=== PATIENT | female | born 1990 | race Two or more races ===

== ENCOUNTER 2023-09-28 14:35 | Inpatient (IN) | payer OTHER ==
[2023-09-28 15:03] VITALS: BMI 33.3
[2023-09-28] MEDS ORDERED: IBUPROFEN 400 MG TABLET (FP) PO PRN (17:09)
[2023-09-28] MEDS ORDERED: METHOCARBAMOL 500 MG TABLET PO PRN (17:09)
[2023-09-28] MEDS ORDERED: ONDANSETRON *ODT* 4 MG TABLET SL PRN (17:09)
[2023-09-28] MEDS ORDERED: guaiFENesin 600 MG TABLET.ER (FP) PO PRN (17:09)
[2023-09-28] MEDS ORDERED: BENZONATATE 200 MG CAPSULE PO PRN (17:09)
[2023-09-28] MEDS ORDERED: BISMUTH SUBSALICYLATE 524 MG/30 ML PO PRN (17:09)
[2023-09-28] MEDS ORDERED: NICOTINE POLACRILEX 2 MG GUM BUC PRN (17:09)
[2023-09-28] MEDS ORDERED: LOPERAMIDE HCL 2 MG CAPSULE PO PRN (17:09)
[2023-09-28] MEDS ORDERED: LORazepam 1 MG TABLET PO PRN (17:09)
[2023-09-28] MEDS ORDERED: BENZOCAINE/MENTHOL (CHLORASEPTIC ) LOZENGE MM PRN (17:09)
[2023-09-28] MEDS ORDERED: MAG HYDROX/AL HYDROX/SIMETH 30 ML UNIT-DOSE CUP PO PRN (17:09)
[2023-09-28] MEDS ORDERED: IBUPROFEN 600 MG TABLET (FP) PO PRN (17:09)
[2023-09-28] MEDS ORDERED: hydrOXYzine PAMOATE 25 MG CAPSULE (FP) PO PRN (17:09)
[2023-09-28] MEDS ORDERED: DICYCLOMINE HCL 10 MG CAPSULE PO PRN (17:09)
[2023-09-28] MEDS ORDERED: ACETAMINOPHEN 325 MG TABLET (FP) PO PRN (17:09)
[2023-09-28] MEDS ORDERED: NALOXONE HCL 0.4 MG/ML VIAL IM PRN (17:09)
[2023-09-28] MEDS ORDERED: NALOXONE HCL (KLOXXADO) 8 MG SPRAY NS PRN (17:09)
[2023-09-28] MEDS ORDERED: POLYETHYLENE GLYCOL (HEALTHYLAX) 3350 17 GM PACKET PO PRN (17:09)
[2023-09-28] MEDS ORDERED: MAGNESIUM HYDROX 2400MG/30ML ORAL SUSPENSION 30 ML CUP PO PRN (17:09)
[2023-09-28] MEDS ORDERED: LORazepam 1 MG TABLET PO ONE (17:30)
[2023-09-28] MEDS ORDERED: LORazepam 1 MG TABLET ONE (17:39)
[2023-09-28] MEDS: PRENATAL VITAMINS W/ FOLIC ACID TABLET (FP) PO SCH (18:38)
[2023-09-28] MEDS: LORazepam 2 MG TABLET PO SCH (22:31)
[2023-09-28] MEDS: THIAMINE HCL 100 MG TABLET (FP) PO SCH (22:31)
[2023-09-28] MEDS: MELATONIN 5 MG TABLETS PO SCH (22:31)
[2023-09-29] MEDS: LORazepam 2 MG TABLET PO SCH ×4 (05:51→22:33)
[2023-09-29] MEDS: PRENATAL VITAMINS W/ FOLIC ACID TABLET (FP) PO SCH (10:09)
[2023-09-29 10:15] LABS: POTASSIUM 3.6 mmol/L (3.5-5.1)
[2023-09-29 10:23] LABS: BLOOD UREA NITROGEN 7.4 mg/dL (7-18)
[2023-09-29 10:24] LABS: ALBUMIN 2.6 g/dl (3.4-5.0)
[2023-09-29 10:27] LABS: CREATININE 0.5 mg/dL (0.55-1.3)
[2023-09-29 10:28] LABS: BILIRUBIN,TOTAL 2.2 mg/dL (0.2-1); TOT PROT 7.6 g/dl (6.4-8.2)
[2023-09-29 10:34] LABS: HEMATOCRIT 25.4 % (32.4-45.2); HEMOGLOBIN 8.2 GM/dL (10.7-15.3); MCH 24.7 pg (25.7-33.7); MCHC 32.3 g/dl (32.0-36.0); MEAN CELL VOLUME 76.6 fl (80-96); RBC 3.32 M/mm3 (3.60-5.2); RDW 32.5 % (11.6-15.6)
[2023-09-29 11:19] LABS: PLATELET COUNT 36 10^3/uL (134-434)
[2023-09-29] MEDS: MELATONIN 5 MG TABLETS PO SCH (22:32)
[2023-09-29] MEDS: THIAMINE HCL 100 MG TABLET (FP) PO SCH (22:32)
[2023-09-30] MEDS: LORazepam 1 MG TABLET PO SCH ×2 (05:45→10:36)
[2023-09-30 09:30] VITALS: PULSE 90
[2023-09-30] MEDS: PRENATAL VITAMINS W/ FOLIC ACID TABLET (FP) PO SCH (10:36)
[2023-09-30] MEDS ORDERED: cloNIDine HCL 0.1 MG TABLET PO SCH (11:30)
[2023-09-30 13:22] VITALS: BP 130/78; RESP 16; TEMP 98.4
[2023-10-01] MEDS ORDERED: LORazepam 0.5 MG TABLET PO PRN
[2023-10-01] MEDS ORDERED: LORazepam 0.5 MG TABLET PO SCH (05:00)
[2023-10-02] MEDS ORDERED: LORazepam 0.5 MG TABLET PO ONE (05:00)
== END 2023-09-30 15:58 | disposition left against medical advice (07) | DRG 770 ==
LOC: YASAS 14:35 → Y3N 17:36
PROVIDERS: ADMIT Allergy & Immunology; ATTEND Surgery
PROC: HZ2ZZZZ Detoxification Services for Substance Abuse Treatment (ICD-10-PCS; principal; 2023-09-28)
DX: F10.230 Alcohol dependence with withdrawal, uncomplicated (principal); F12.10 Cannabis abuse, uncomplicated; F17.210 Nicotine dependence, cigarettes, uncomplicated; E72.20 Disorder of urea cycle metabolism, unspecified; D57.3 Sickle-cell trait; D64.9 Anemia, unspecified; K74.60 Unspecified cirrhosis of liver; R79.89 Other specified abnormal findings of blood chemistry; Z87.19 Personal history of other diseases of the digestive system
CPT/HCPCS: 36415; 80053; 80305; 80307; 81025; 82140; 85027; 86780; 87635; 93005; 93010